=== PATIENT | male | born 1960 ===

== ENCOUNTER 2020-08-08 14:00 | Outpatient (CLI) | payer OTHER ==
[~2020-08-08 14:00] MED LIST: NABUMETONE500 MG PO
[2020-09-09] MEDS ORDERED: DEPO-MEDRO40 MG/1 ML IJ (10:16)
== END 2020-08-08 14:04 | disposition home or self-care (01) ==
LOC: LAB 14:00
PROVIDERS: ATTEND Physical Medicine & Rehabilitation
DX: R05 Cough (principal); R50.9 Fever, unspecified; R06.02 Shortness of breath; Z03.818 Encounter for observation for suspected exposure to other biological agents ruled out